=== PATIENT | female | born 1950 | race Two or more races ===

== ENCOUNTER 2017-10-16 07:22 | Outpatient (CLI) | payer OTHER ==
[~2017-10-16 07:22] MED LIST: CAPOTEN100 MG; METFORMIN HCL500 MG; NORVASC5 MG; ULTRAM50 MG PO; ZITHROMAX TRI-500 MG PO
== END 2017-10-16 07:24 | disposition home or self-care (01) ==
LOC: NUCLEAR 07:22
DX: I25.10 Atherosclerotic heart disease of native coronary artery without angina pectoris (principal); I11.9 Hypertensive heart disease without heart failure; E11.9 Type 2 diabetes mellitus without complications
CPT/HCPCS: 78452; 93017; A9500; J0153

== ENCOUNTER 2018-09-15 07:00 | Day surgery (SDC) | payer OTHER ==
[~2018-09-15] VITALS: Ht 66 cm; Wt 5.0 kg
[~2018-09-15 07:00] MED LIST changes: +ISORDIL TITRADOS5 MG PO; +PLAVIX75 MG PO
[2018-09-16] MEDS ORDERED: ULTRACET PO (09:06)
[2018-09-16] MEDS ORDERED: SURFAK240 M1 PO (09:06)
== END 2018-09-16 08:00 | disposition home or self-care (01) ==
LOC: CIR.AMB 07:00 → SURH 08:30 → O/R 11:34 → OB/GYN 11:34 → SURH 12:45 → EDSTATUS 12:45 → CIR.AMB 09-16 08:00 → OB/GYN 09-16 12:02
DX: N81.3 Complete uterovaginal prolapse (principal); E11.9 Type 2 diabetes mellitus without complications

== ENCOUNTER 2021-06-20 09:23 | Emergency (ER) | payer OTHER ==
[~2021-06-20] VITALS: Ht 157.5 cm; Wt 72.6 kg
[~2021-06-20 09:23] MED LIST changes: +SURFAK240 M1 PO; +ULTRACET PO
[2021-06-20] MEDS ORDERED: GLIMEPIRIDE4 M1 (09:52)
[2021-06-20] MEDS ORDERED: SYNTHROID100 MCG (09:53)
[2021-06-20] MEDS ORDERED: ATACAND16 MG (09:53)
[2021-06-20] MEDS ORDERED: CYCLOBENZAPRINE10 MG PO (15:35)
[2021-06-20] MEDS ORDERED: SKELAGESIC PO (15:35)
== END 2021-06-20 15:42 | disposition home or self-care (01) ==
LOC: ER 09:23
DX: G44.89 Other headache syndrome (principal); M54.12 Radiculopathy, cervical region; R53.1 Weakness; R07.89 Other chest pain; Z03.818 Encounter for observation for suspected exposure to other biological agents ruled out

== ENCOUNTER 2025-04-17 17:34 | Emergency (ER) | payer OTHER ==
[~2025-04-17] VITALS: Ht 152.4 cm; Wt 79.4 kg
[~2025-04-17 17:34] MED LIST changes: +ATACAND16 MG; +CYCLOBENZAPRINE10 MG PO; +GLIMEPIRIDE4 M1; +SKELAGESIC PO; +SYNTHROID100 MCG
[2025-04-17] MEDS ORDERED: BUSPIRONE HCL7.5 MG PO (17:57)
[2025-04-17] MEDS ORDERED: TOPROL XL50 M1 PO (17:58)
[2025-04-17] MEDS ORDERED: LIPITOR80 MG PO (17:58)
[2025-04-17] MEDS ORDERED: EZETIMIBE10 MG PO (17:58)
[2025-04-17] MEDS ORDERED: ATACAND4 MG PO (17:59)
[2025-04-17] MEDS ORDERED: GLIMEPIRIDE4 MG (17:59)
[2025-04-17] MEDS ORDERED: HYDROCHLOROTH12.5 MG (17:59)
[2025-04-17] MEDS ORDERED: SYNTHROID88 MCG PO (17:59)
[2025-04-17 19:36] LABS: URINE APPEARANCE Clear; URINE BILIRRUBIN Negative (NEGATIVE); URINE BLOOD Negative; URINE COLOR Yellow; URINE GLUCOSE Negative (NEGATIVE); URINE KETONE Negative (NEGATIVE); URINE LEUKOCYTE Negative; URINE NITRATE Negative; URINE PROTEIN Negative (NEGATIVE); URINE UROBILINOGEN 0.2 E.U./dl
[2025-04-17 19:40] LABS: URINE BACTERIA 11.9 uL (0.0-1933); URINE EPITHELIAL CELLS 1.5 uL (0.0-38.8)
[2025-04-17 19:41] LABS: URINE CAST 0.43 uL (0.0-1.40); URINE RBC 0.2 uL (0.0-20.8); URINE WBC 0.6 uL (0.0-23.2)
[2025-04-17] MEDS ORDERED: LACTOBACILLUS ACIDOPHILUS 1 CAP CAP PO ONE (20:00)
[2025-04-17] MEDS ORDERED: MAG HYDROX/ALUMINUM HYD/SIMETH 30 ML BLIST.PACK PO ONE (20:00)
[2025-04-17 20:08] LABS: INR 1.0
[2025-04-17 20:11] LABS: COVID-19 AG NEGATIVE (NEGATIVE)
[2025-04-17 20:12] LABS: BASO % 0.2 % (0.1-1.2); EOS # 0.02 (0.04-0.54); EOS % 0.2 % (0.7-7.0); LYMPH # 0.38 (1.18-3.74); LYMPH % 3.6 % (19.3-53.1); MEAN PLATELET VOLUME 11.80 fl (9.4-12.4); MONO # 1.21 (0.24-0.82); MONO % 11.5 % (4.7-12.5); NEUT # 8.81 (1.56-6.13); NEUT % 84.0 % (34.0-71.1); RED CELL DISTRIBUTION WIDTH 12.4 % (11.6-14.4)
[2025-04-17 20:14] LABS: ALT/SGPT 38.0 U/L (12-78); AST/SGOT 32.0 U/L (15-37); BILIRUBIN TOTAL 0.68 mg/dL (0.3-1.2); BUN CREA RATIO 16.0 (7.0-25.0); CREATININE SERUM 1.06 mg/dL (0.55-1.02); GFR 50.67; GLOBULINA 3.5 G/DL (2.4-3.5); GLUCOSE FASTING 145.0 mg/dL (65-100); OSMOLALITY SERUM 285.0 MOSM/KG (275-295)
[2025-04-17] MEDS ORDERED: ORPHENADRINE CITRATE 30 MG/ML AMPUL IM ONE (21:00)
[2025-04-17] MEDS ORDERED: INTESTINEX680 M1 PO (21:28)
[2025-04-17] MEDS ORDERED: PEPCID AC20 MG PO (21:28)
== END 2025-04-17 22:05 ==
LOC: ER 17:34
PROVIDERS: Preventive Medicine Public Health & General Preventive Medicine
DX: R07.89 Other chest pain (principal); R53.1 Weakness; Z20.822 Contact with and (suspected) exposure to COVID-19; E11.9 Type 2 diabetes mellitus without complications; Z79.84 Long term (current) use of oral hypoglycemic drugs; Z86.73 Personal history of transient ischemic attack (TIA), and cerebral infarction without residual deficits; Z88.6 Allergy status to analgesic agent; Z91.013 Allergy to seafood
CPT/HCPCS: 36415; 71046; 93005; 96372; 99283; J2360